=== PATIENT | male | born 1945 | race Caucasian/White ===

== ENCOUNTER 2016-06-17 11:38 | Outpatient (CLI) | payer MEDICARE, OTHER ==
[2016-06-17] VITALS (12 sets, daily range): BP systolic 127–151; BP diastolic 78–100; PULSE 60–77
[~2016-06-17] VITALS: Ht 180.3 cm; Wt 88.6 kg
[~2016-06-17 11:38] MED LIST: COLACE 100100 MG/CAP PO; FLOMAX 0.40.4 MG/CAP PO; LEVAQUIN 5500 MG/TA1 PO; LUTEIN + KALE 11 CAP PO; LUTEIN6 MG PO; MULTIVITAMIN1 CTB PO; NIACIN500 M3 PO; NIACOR500 MG PO; NORCO 325 MG-51 TAB PO; PERCOCET 325 MG1 TA2 PO; PYRIDIUM 100MG100 MG PO; SENNA8.6 MG PO; SENOKOT S 50 MG1 TAB PO
== END 2016-06-17 18:00 | disposition home or self-care (01) ==
LOC: COL.RAD 11:38
DX: D14.32 Benign neoplasm of left bronchus and lung (principal); C67.7 Malignant neoplasm of urachus
CPT/HCPCS: 3748

== ENCOUNTER 2016-06-27 09:37 | Outpatient (CLI) | payer MEDICARE, OTHER ==
[~2016-06-27] VITALS: Ht 180.3 cm; Wt 88.6 kg
[2016-06-27 09:57] VITALS: BP 136/83; PULSE 64; TEMP 97.7
== END 2016-06-27 11:42 | disposition home or self-care (01) ==
LOC: EUO 09:37
DX: C67.7 Malignant neoplasm of urachus (principal)
CPT/HCPCS: C1751

== ENCOUNTER → 2016-07-18 | Outpatient (REF) | LOC: ZAIV 07-17 06:00 | DX: Z01.89 Encounter for other specified special examinations (principal) ==

== ENCOUNTER 2016-10-01 10:50 | Day surgery (SDC) | payer MEDICARE, OTHER ==
[~2016-10-01] VITALS: Ht 180.3 cm; Wt 89.7 kg
[2016-10-01 11:47] VITALS: BP 134/86; PULSE 64; TEMP 97.5
[2016-10-01 13:29] VITALS: BP 112/71; PULSE 57
[2016-10-01] MEDS ORDERED: NORCO 325 MG-51 TAB PO (13:29)
[2016-10-01 13:44] VITALS: BP 131/73; PULSE 62
[2016-10-01 13:59] VITALS: BP 127/78; PULSE 59
[2016-10-01 14:14] VITALS: BP 137/78; PULSE 51
== END 2016-10-01 14:40 | disposition home or self-care (01) ==
LOC: SDCO 10:50
DX: Z45.2 Encounter for adjustment and management of vascular access device (principal); C67.7 Malignant neoplasm of urachus; C78.00 Secondary malignant neoplasm of unspecified lung; N40.0 Benign prostatic hyperplasia without lower urinary tract symptoms
CPT/HCPCS: C1788; J0690; J2704; J3010; J7120

== ENCOUNTER → 2019-03-04 | Outpatient (CLI) | payer MEDICARE, OTHER ==
[~2019-03-04] VITALS: Ht 180.3 cm; Wt 93.1 kg
[2019-03-04] VITALS (11 sets, daily range): BP systolic 130–170; BP diastolic 81–99; PULSE 67–83
[~2019-03-04] MED LIST changes: +IP6 PO; +[UNRECOGNIZED DRUG - OTHER] PO
--- NOTE | 2019-03-04 10:45 | NUR ---
PT TAKEN TO CT AREA AMBULATORY. PT WAS PLACED ON THE TABLE AND MONITORING EQUIPMENT PLACED ON PT. IMAGES TAKEN AND SENT.
--- NOTE | 2019-03-04 10:55 | NUR ---
PT WAS GIVEN 0.5 MG VERSED AND 25 MCG FENTANYL. MARCAINE WAS USED.
--- NOTE | 2019-03-04 11:05 | NUR ---
GIVEN VERSED 0.5 MG AND FENTANYL 25MCG. SAMPLES TAKEN
--- NOTE | 2019-03-04 12:10 | NUR ---
PT WAS TAKEN BY WHEELCHAIR TO FRONT LOBBY. DAUGHTER IN LAW BROUGHT CAR AROUND AND PT WAS INDEPENDENT TO [facility].
== END ==
LOC: COL.RAD 09:51
DX: C67.7 Malignant neoplasm of urachus (principal)
CPT/HCPCS: J2250; J3010

== ENCOUNTER 2020-02-19 12:24 | Emergency (ER) | payer MEDICARE, OTHER ==
[~2020-02-19] VITALS: Ht 180.3 cm; Wt 88.6 kg
[2020-02-19 12:28] VITALS: TEMP 98.3
[2020-02-19] MEDS ORDERED: ROXICODONE 55 MG/TAB PO (12:37)
[2020-02-19] MEDS ORDERED: CALCIUM CARBON650 M2 (12:46)
[2020-02-19 13:16] LABS: HEMOGLOBIN 10.7 g/dl (13.5-18.0); MEAN CELL VOLUME 100 fl (80.0-100.0); MEAN CORPUSCULAR HEMOGLOBIN 33 pg (27.0-31.0); MEAN CORPUSCULAR HGB CONC 33 g/dl (33.0-37.0); MEAN PLATELET VOLUME 9.1 fl (7.4-10.4); PLATELET COUNT 267 K/mm3 (130-400); REDCELL DISTRIBUTION WIDTH-CV 14.6 % (11.5-14.5)
[2020-02-19 13:18] LABS: HEMATOCRIT 32.1 % (42.0-52.0)
[2020-02-19 13:22] LABS: ALBUMIN 4.3 gm/dL (3.5-5.0); BILIRUBIN,TOTAL 0.7 mg/dL (0.0-1.0); CREATININE, serum 0.87 (0.66-1.25); POTASSIUM 3.7 mmol/L (3.4-5.0); TOTAL PROTEIN 7.9 gm/dL (6.4-8.2)
[2020-02-19] MEDS ORDERED: VITAMIN E 400 U4001 (13:36)
[2020-02-19] MEDS ORDERED: NATURAL ODORLE400 MG (13:36)
[2020-02-19 13:37] LABS: INR 1.2 (0.8-3.0); PROTHROMBIN TIME 12.9 SECONDS (9.7-12.8)
[2020-02-19] MEDS ORDERED: ONE-A-DAY ESSE1 EACH PO (13:37)
[2020-02-19] MEDS ORDERED: FLOMAX 0.40.4 MG/CAP PO (13:37)
[2020-02-19 13:40] LABS: PARTIAL THROMBOPLASTIN TIME 28.7 SECONDS (26.0-37.0)
[2020-02-19 14:08] LABS: BAND 10 % (0-10); EOSINOPHIL 1 % (0-4); LYMPHOCYTE 19 % (20.0-51.0); NEUTROPHILS 57 % (42.0-75.2); PLATELET ESTIMATE NORMAL (NORMAL)
[2020-02-19 15:23] VITALS: BP 142/90; PULSE 92
== END 2020-02-19 15:20 | disposition other institution (70) ==
LOC: COL.ER 12:24
PROVIDERS: Emergency Medicine
DX: M79.661 Pain in right lower leg (principal); M79.662 Pain in left lower leg; Z85.59 Personal history of malignant neoplasm of other urinary tract organ; Z91.041 Radiographic dye allergy status
CPT/HCPCS: J7030

== ENCOUNTER 2020-08-15 10:36 | Inpatient (IN) | payer MEDICARE, OTHER ==
[~2020-08-15] VITALS: Ht 180.3 cm; Wt 82.0 kg
[~2020-08-15 10:36] MED LIST changes: +CALCIUM CARBON650 M2; +NATURAL ODORLE400 MG; +ONE-A-DAY ESSE1 EACH PO; +ROXICODONE 55 MG/TAB PO; +VITAMIN E 400 U4001
[2020-08-15 11:29] VITALS: BP 133/80; PULSE 104; TEMP 97.9
[2020-08-15 11:43] LABS: MEAN CELL VOLUME 98 fl (80.0-100.0); MEAN CORPUSCULAR HGB CONC 32 g/dl (33.0-37.0); MEAN PLATELET VOLUME 9.3 fl (7.4-10.4); PLATELET COUNT 267 K/mm3 (130-400); RED BLOOD COUNT 2.35 M/mm3 (4.20-5.60); REDCELL DISTRIBUTION WIDTH-CV 18.7 % (11.5-14.5)
[2020-08-15 11:44] LABS: HEMATOCRIT 23.1 % (42.0-52.0); HEMOGLOBIN 7.4 g/dl (13.5-18.0); MEAN CORPUSCULAR HEMOGLOBIN 31 pg (27.0-31.0)
[2020-08-15] MEDS ORDERED: VITAMIN C500 MG PO (11:47)
[2020-08-15] MEDS ORDERED: CALCIUM-MAGNES1 EAC1 PO (11:49)
[2020-08-15] MEDS ORDERED: MS CONTIN 330 MG/TAB PO (11:51)
[2020-08-15] MEDS ORDERED: SENNA-LAX8.6 MG PO (11:57)
[2020-08-15] MEDS ORDERED: ROXICODONE15 MG PO (11:57)
[2020-08-15 11:59] LABS: ANISOCYTOSIS 3+; EOSINOPHIL 2 % (0-4); HYPOCHROMIA 2+; LYMPHOCYTE 4 % (20.0-51.0); METAMYELOCYTE 1 % (0-0); NEUTROPHILS 81 % (42.0-75.2); PLATELET ESTIMATE NORMAL (NORMAL); TOXIC GRANULATION PRESENT
[2020-08-15 12:15] LABS: CALCIUM 7.9 mg/dL (8.4-10.2); CREATININE, serum 1.15 (0.66-1.25); POTASSIUM 5.1 mmol/L (3.4-5.0)
--- NOTE | 2020-08-15 12:50 | NUR ---
Initial visit; Patient requested prayer prior to surgical procedure. Natural Gas Inspector offered prayer for procedure to alleviate some pain, talked with Khoa about our health and God's Will and offered God's blessings.
--- NOTE | 2020-08-15 13:11 | NUR ---
DR WARNER SEEN PATIENT AND CANCELLED SURGERY. HOSPITALIST NOTIFIED BY DR WARNER. CONSUMER EDUCATION SPECIALIST NOTIFIED.
--- NOTE | 2020-08-15 13:55 | NUR ---
1340 VAMP PRESSER HERE IN AMB UNIT, INFORMED PATIENT TO GO TO ROOM 351 REPORT CALLED TO LOULOU JOY PER PHONE. 1355 PATIENT TRANSPORTED PER CART FROM AMBULATORY UNIT TO ROOM 351 ACCOMPANIED BY AMB RN. PERSONAL BELONGINGS AND MEDS TAKEN WITH PATIENT. LOULOU JOY IN ROOM AND HELP TRANSFER PATIENT USING SLID BOARD AND 2 ASSIST. PATIENT TALKS WITH STAFF. IV CONTINUES. PT HAS FERRERA THAT WAS PLACED OUTSIDE OF HOSPITAL.
[2020-08-15 15:50] VITALS: BP 128/84; PULSE 106; TEMP 97.5
--- NOTE | 2020-08-15 17:11 | NUR ---
PAST ALLERGY REPORTED FOR IODINE, PT REPORTS HAVING CT W/ CONTRAST LAST WEEK AND DID NOT HAVE A REACTION, BETHANY JUNIOR NOTIFIED AND STILL WANTING TO CT W/ CONTRAST AT THIS TIME. CT NOTIFIED.
--- NOTE | 2020-08-15 18:04 | NUR ---
FERRERA CATHETER INSERTED, UNABLE TO GET UA DUE TO 2ML IN BLADDER AFTER BLADDER SCAN, PT AOX4, DENIES ALLERGY TO IODINE, PT PLEASANT, NOT IMPULSIVE, 2ASSIST TO WHEELCHAIR, BED ALARM SET, CALL LIGHT WITHIN REACH.
[2020-08-15 18:29] LABS: CREATININE, serum 1.18 (0.66-1.25); POTASSIUM 4.6 mmol/L (3.4-5.0)
[2020-08-15 20:00] VITALS: BP 133/87; PULSE 102; TEMP 98.2
[2020-08-15 21:52] LABS: COLLECTION METHOD CATHETER
[2020-08-15 22:00] LABS: BUDDING YEAST Present /hpf; MUCOUS Present /lpf; PH 6 (5-8); SQUAMOUS EPITHELIAL 0-2 /hpf; URINE APPEARANCE Clear; URINE BACTERIA None Seen /hpf; URINE BILIRUBIN Negative (NEGATIVE); URINE BLOOD 2+ (NEGATIVE); URINE COLOR Amber; URINE GLUCOSE Negative (NEGATIVE); URINE KETONE 1+ (NEGATIVE); URINE LEUKOCYTE ESTERASE Negative (NEGATIVE); URINE NITRATE Positive (NEGATIVE); URINE PROTEIN(semi-quant) 2+ (NEGATIVE); URINE RBC >50 /hpf; URINE UROBILINOGEN >=4.0 mg/dL (NEGATIVE)
[2020-08-16 00:47] LABS: CALCIUM 7.9 mg/dL (8.4-10.2); CREATININE, serum 1.14 (0.66-1.25); POTASSIUM 4.7 mmol/L (3.4-5.0)
[2020-08-16 01:40] VITALS: BP 137/86; PULSE 110; TEMP 98.5
--- NOTE | 2020-08-16 02:57 | NUR ---
PATIENT RESTING IN BED SLEEPING. OXYCONE GIVEN ORDERED FOR PAIN. NA 119 HOSPITOLIST MA AWARE ORDERED TO INCREASE NS TO 100ML/HR. FERRERA TO GRAVITY DRAIN ORANGE URINE. VITAL SIGNS STABLE. WILL CONTINUE TO MONITOR.
[2020-08-16 04:33] VITALS: BP 135/80; PULSE 102; TEMP 98.4
[2020-08-16 06:46] LABS: MEAN CELL VOLUME 101 fl (80.0-100.0); MEAN CORPUSCULAR HGB CONC 32 g/dl (33.0-37.0); MEAN PLATELET VOLUME 9.4 fl (7.4-10.4); PLATELET COUNT 255 K/mm3 (130-400); RED BLOOD COUNT 2.13 M/mm3 (4.20-5.60); REDCELL DISTRIBUTION WIDTH-CV 18.9 % (11.5-14.5)
[2020-08-16 06:59] LABS: CALCIUM 7.6 mg/dL (8.4-10.2); CREATININE, serum 1.14 (0.66-1.25); POTASSIUM 4.4 mmol/L (3.4-5.0)
[2020-08-16 07:01] LABS: HEMATOCRIT 21.6 % (42.0-52.0); HEMOGLOBIN 6.9 g/dl (13.5-18.0); MEAN CORPUSCULAR HEMOGLOBIN 32 pg (27.0-31.0)
[2020-08-16 07:42] LABS: EOSINOPHIL 1 % (0-4); LYMPHOCYTE 2 % (20.0-51.0); METAMYELOCYTE 6 % (0-0); NEUTROPHILS 81 % (42.0-75.2)
[2020-08-16 07:43] LABS: PLATELET ESTIMATE NORMAL (NORMAL)
[2020-08-16 07:44] LABS: ANISOCYTOSIS 2+; HYPOCHROMIA 2+
[2020-08-16 07:45] LABS: TEAR DROP CELLS 1+
[2020-08-16 08:00] VITALS: BP 130/85; PULSE 100; TEMP 98.4
--- NOTE | 2020-08-16 09:49 | NUR ---
PT SEEN BY DR. GARCIA AND DR. WARNER. REVIEWED LABS WITH BETHANY JUNIOR. SEE COMPUTER FOR ORDERS. PAIN CONTROLLED WITH PO MEDS.
--- NOTE | 2020-08-16 10:34 | NUR ---
Follow-up visit; Patient thanked Skin Washer for looking in on him and listening to him speak about the time he believes he has left here on earth. Patient requested pracarloz and made sure Khoa has a support system. He mentioned that he has children and wonderful friends for support. Skin Washer will continue to look in on him.
--- NOTE | 2020-08-16 12:18 | NUR ---
I met with patient this morning to talk about his goals of care. he reports that he is no longer seeking treatment for his cancer and now would like to focus on comfort with hospice care after discharge. He reports that he has spoken with his daughter, Stacey Ford, about hospice and he believes that she understands his wishes. I also talked with Stacey about hospice care and relayed that their hospital does not have a hospice unit but does have a room that they use for 2 weeks or less of hospice care after a 3day inpatient admission. Antoinette, his is in the local detention, but he is not sure that he wants to go to the detention. Stacey requested contact information about [facility] and I did give her their phone number and contact information. She will talk with them and then speak with her father more.
[2020-08-16 12:21] VITALS: BP 132/86; PULSE 99; TEMP 98.6
[2020-08-16 13:42] LABS: CALCIUM 7.5 mg/dL (8.4-10.2); CREATININE, serum 1.1 (0.66-1.25); POTASSIUM 4.4 mmol/L (3.4-5.0)
--- NOTE | 2020-08-16 14:26 | NUR ---
Business Executive met with patient to discuss discharge planning. SW had consulted with Any, Palliative RN who had met with patient earlier and spoke with patient's daughter, Stacey (ph#[phone]). Any advised that patient's daughter had been interested in [facility]. SW met with patient who advised he lives alone in [place] and his , who has dementia lives at [facility] in [place]. Patient sees SANDI Saez for primary care and obtains medications from [facility]. Patient states he has a walker, lift chair, and bedside commode at home. Patient states he does not do a lot of moving at home but can get from his lift chair to his bedside commode. Patient states he has a private duty caregiver, Beltran who isn't from an agency, but just privately hired. SW discussed discharge options with patient who states he does not want to go to the [facility]. Patient states he wants to go home on hospice. SW provided Medicare.gov list of Hospice Agencies that serve [place] and patient selected [facility]. SW contacted [facility] and faxed a referral. SW spoke with Dunia, Pals Specialist who advised they will review referral and could likely accept tomorrow. SW spoke with patient about having in home support 24/ as this is often a requirement of hospice agencies. Patient states that between his private duty caregiver and friends in [place], he will have support at home at all times. Patient states he has a friend that will transport him home tomorrow. SW contacted patient's daughter, Stacey to review discharge plan. Stacey is in agreement with discharge home on hospice. Stacey states initially patient wanted placement in a facility, however told her this afternoon he wanted to go home. Stacey confirms that patient has good support in town and could have people in the home. [facility] ph#[phone] fax#[phone] Discharge Plan: Home with [facility]
[2020-08-16 16:32] LABS: CALCIUM 7.3 mg/dL (8.4-10.2); CREATININE, serum 1.02 (0.66-1.25); POTASSIUM 4.4 mmol/L (3.4-5.0)
[2020-08-16 16:43] VITALS: BP 132/81; PULSE 96; TEMP 98.4
[2020-08-16 19:14] VITALS: BP 148/86; PULSE 107; TEMP 97.9
[2020-08-16 19:31] LABS: CALCIUM 7.2 mg/dL (8.4-10.2); CREATININE, serum 1.03 (0.66-1.25); POTASSIUM 4.4 mmol/L (3.4-5.0)
--- NOTE | 2020-08-16 19:33 | NUR ---
PATIENT LAYING IN BED ALERT AND ORIENTED. C/O OF ABDOMINAL PAIN, OXYCODONE 15 MG GIVEN. SODIUM CHLORIDE 3% INFUSING AT 30ML/HR. FERRERA TO GRAVITY DRAINING ORANGE COLOR URINE. EDUCATION DONE ON NO FREE WATER RESTRICTION. PATIENT VERBALIZE UNDERSTANDING. WILL CONTINUE TO MONITOR.
[2020-08-16 22:31] LABS: CALCIUM 7.4 mg/dL (8.4-10.2); CREATININE, serum 1.02 (0.66-1.25); POTASSIUM 4.4 mmol/L (3.4-5.0)
[2020-08-17] VITALS (7 sets, daily range): BP systolic 125–135; BP diastolic 71–94; PULSE 103–111; TEMP 97.4–98.5
[2020-08-17 01:41] LABS: CALCIUM 7.4 mg/dL (8.4-10.2); CREATININE, serum 1.07 (0.66-1.25); POTASSIUM 4.3 mmol/L (3.4-5.0)
[2020-08-17 04:25] LABS: MEAN CELL VOLUME 103 fl (80.0-100.0); MEAN CORPUSCULAR HGB CONC 31 g/dl (33.0-37.0); PLATELET COUNT 257 K/mm3 (130-400); RED BLOOD COUNT 2.31 M/mm3 (4.20-5.60); REDCELL DISTRIBUTION WIDTH-CV 19.4 % (11.5-14.5)
[2020-08-17 04:27] LABS: HEMATOCRIT 23.7 % (42.0-52.0); HEMOGLOBIN 7.3 g/dl (13.5-18.0); MEAN CORPUSCULAR HEMOGLOBIN 32 pg (27.0-31.0)
[2020-08-17 04:35] LABS: CALCIUM 7.4 mg/dL (8.4-10.2); CREATININE, serum 1.01 (0.66-1.25); POTASSIUM 4.2 mmol/L (3.4-5.0)
[2020-08-17 04:51] LABS: ANISOCYTOSIS 1+; BAND 2 % (0-10); EOSINOPHIL 1 % (0-4); LYMPHOCYTE 5 % (20.0-51.0); METAMYELOCYTE 2 % (0-0); NEUTROPHILS 81 % (42.0-75.2); PLATELET ESTIMATE NORMAL (NORMAL)
[2020-08-17 04:52] LABS: HYPOCHROMIA 3+
[2020-08-17 07:27] LABS: CALCIUM 7.3 mg/dL (8.4-10.2); CREATININE, serum 0.96 (0.66-1.25); POTASSIUM 4.3 mmol/L (3.4-5.0)
--- NOTE | 2020-08-17 09:54 | NUR ---
I met with patient this morning. he reports has spoken with his daughter by phone and feels that the best place is at home with people staying with him to meet hospice requirement. He feels that they will place the stent today sometime and then he will go home. He is not sure when his surgery might be at this point. I am told by social work that they have contacted [facility] and they would prefer to do a morning admission. We will see when his surgery happens and how he tolerates it which will most likely determine when he can be discharged.
[2020-08-17 10:36] LABS: CALCIUM 7.1 mg/dL (8.4-10.2); CREATININE, serum 0.95 (0.66-1.25); POTASSIUM 4.4 mmol/L (3.4-5.0)
[2020-08-17 11:23] LABS: INR 1.2 (0.8-3.0); PROTHROMBIN TIME 13.8 SECONDS (9.7-12.8)
--- NOTE | 2020-08-17 13:49 | NUR ---
Lease Picker attended clinical rounds with the team. The patient to have a thoracentesis and stent this day. Discharge home with hospice will likely be tomorrow, Friday 08/18. DAVON contacted Holly from [facility] to discuss the above discharge plan. Holly was agreeable to a 08/18 discharge. DAVON faxed clinicals and advanced directives to Holly. DAVON attempted to contact the patient's daughter Stacey to provided the above update, left message. *Discharge disposition: Home with [facility]*
--- NOTE | 2020-08-17 18:00 | NUR ---
Patient is going down for Cysto/ stent placement at this time
[2020-08-18 00:10] VITALS: BP 138/84; PULSE 105; TEMP 98.6
[2020-08-18 04:09] VITALS: BP 141/82; PULSE 90; TEMP 97.6
--- NOTE | 2020-08-18 07:45 | NUR ---
Shift assessment complete. Pt lying in bed, denies pain or SOA. A&Ox4. Heart RRR. Lungs CTA. Left chest port w/o s/s complicatin, flushes easily and blood return noted. Denies needs at this time. Continuing to monitor.
[2020-08-18 07:59] VITALS: BP 142/82; PULSE 105; TEMP 97.9
--- NOTE | 2020-08-18 08:30 | NUR ---
Pt off unit for thoracentesis at this time.
[2020-08-18 10:12] LABS: PLEURAL FLUID RBC 0 /mm3 (0-0); PLEURAL FLUID WBC 46 /mm3
[2020-08-18 10:15] LABS: PLEURAL FLUID APPEARANCE CLEAR; PLEURAL FLUID COLOR YELLOW
[2020-08-18 10:26] LABS: GLUCOSE,PLEURAL FLUID 116 mg/dL; TOTAL PROTEIN,PLEURAL FLUID 2.9 gm/dL
[2020-08-18 11:50] VITALS: BP 135/87; PULSE 107; TEMP 97.6
[2020-08-18 16:54] VITALS: BP 120/76; PULSE 103; TEMP 97.6
[2020-08-18 19:10] VITALS: BP 117/74; PULSE 109; TEMP 98
[2020-08-19 00:51] VITALS: BP 134/74; PULSE 99; TEMP 98
[2020-08-19 03:36] VITALS: BP 124/74; PULSE 100; TEMP 98.3
--- NOTE | 2020-08-19 03:38 | NUR ---
Call placed to Lilo JUNIOR re: 175ml urine per valenzuela during shift. Updated on patient status.
[2020-08-19 07:48] VITALS: BP 114/69; PULSE 103; TEMP 97.6
--- NOTE | 2020-08-19 09:00 | NUR ---
Shift assessment complete. Pt lying in bed w/tv on. Reports mild back pain, pain med given per orders. A&Ox4. Heart RRR. Lungs CTA. Left thora site w/bandaid, CDI. Denies needs at this time. Call light in reach.
[2020-08-19 12:14] VITALS: BP 110/73; PULSE 105; TEMP 97.4
[2020-08-19] MEDS ORDERED: ZOFRAN ODT8 MG PO (12:33)
[2020-08-19] MEDS ORDERED: OMNICEF 300MG300 MG PO (12:38)
--- NOTE | 2020-08-19 14:17 | NUR ---
Sharron updated Henrietta from [facility] that he was pending his thoracetesis. Daughter Stacey was in the room and was updated with his discharge plans. Daughter Stacey will be taking the pt home. Sharron faxed over discharge orders over to [facility]. Pt will be discharge today 08/19.
--- NOTE | 2020-08-19 15:00 | NUR ---
Discharge instructions discussed w/pt and family, all questions answered. Left chest port heparin locked and deaccessed. Pt escorted out via wheelchair w/all belongings.
== END 2020-08-19 15:15 | disposition home or self-care (01) | DRG 656 ==
LOC: SDCO 10:36 → MEDICAL 13:56
PROVIDERS: Physician Assistant; Urology; ADMIT Internal Medicine
PROC: 0T768DZ Dilation of Right Ureter with Intraluminal Device, Via Natural or Artificial Opening Endoscopic (ICD-10-PCS; principal; 2020-08-17 17:00)
PROC: BT1D1ZZ Fluoroscopy of Right Kidney, Ureter and Bladder using Low Osmolar Contrast (ICD-10-PCS; 2020-08-17 17:00)
DX: C67.7 Malignant neoplasm of urachus (principal); E43 Unspecified severe protein-calorie malnutrition; E87.1 Hypo-osmolality and hyponatremia; N39.0 Urinary tract infection, site not specified; J90 Pleural effusion, not elsewhere classified; R18.0 Malignant ascites; N13.6 Pyonephrosis; Z68.1 Body mass index [BMI] 19.9 or less, adult; C78.6 Secondary malignant neoplasm of retroperitoneum and peritoneum; E87.5 Hyperkalemia; D64.9 Anemia, unspecified; R31.9 Hematuria, unspecified; Z66 Do not resuscitate; R53.81 Other malaise; R07.9 Chest pain, unspecified
CPT/HCPCS: 99223-AI; 99232-AI; 99233-AI; 99239; C1769; C2617; J0690; J0696; J2704; J7030; J7120; J7131; Q9967